=== PATIENT | male | born 1955 | race Caucasian/White ===

== ENCOUNTER → 2020-08-19 17:56 | Outpatient (CLI) | payer MEDICARE, SELFPAY ==
[2020-08-19 18:53] LABS: T4 (Thyroxine) 11.1 ug/dl (5.53-11.0)
[2020-08-19 19:06] LABS: Thyroid Stimulating Hormone 1.27 uIU/mL (0.465-4.68)
== END ==
PROVIDERS: Visit Provider Family Medicine
DX: E03.9 Hypothyroidism, unspecified (principal)
CPT/HCPCS: 84436; 84443

== ENCOUNTER → 2021-10-21 20:36 | Outpatient (CLI) | payer MEDICARE, SELFPAY ==
[2021-10-21 21:42] LABS: Thyroid Stimulating Hormone 1.45 uIU/mL (0.465-4.68)
== END ==
PROVIDERS: Visit Provider Family Medicine
DX: E03.9 Hypothyroidism, unspecified (principal)
CPT/HCPCS: 84443

== ENCOUNTER → 2022-04-02 11:55 | Outpatient (CLI) | payer MEDICARE, SELFPAY ==
[2022-04-02 17:58] LABS: Basophils # 0.3 K/mm3 (0-0.2); Basophils % 1.2 % (0.1-2.0); Eosinophils % 0.1 % (0.1-12.0); Hematocrit 40.6 % (42.0-52.0); Hemoglobin 12.5 g/dL (14.1-18.0); Lymphocytes # 23.9 K/mm3 (0.7-4.5); Lymphocytes % 93.7 % (10-50); Mean Corpuscular HGB Conc 30.9 g/dL (31.8-35.4); Mean Corpuscular Volume 119.8 fl (80-94); Mean Platelet Volume 9.8 fl (7.4-10.4); Monocytes # 0.1 K/mm3 (0.1-1.0); Monocytes % 0.2 % (1.7-9.3); Neutrophils # 1.3 K/mm3 (1.8-7.8); Neutrophils % 4.9 % (37.0-80.0); Platelet Count 207 K/mm3 (142-424); Red Blood Count 3.39 M/mm3 (4.60-6.20); Red Cell Distribution Width 15.5 % (11.5-17.5); White Blood Count 25.5 K/mm3 (4.8-10.8)
[2022-04-02 17:59] LABS: MANUAL DIFFERENTIAL MANUAL DIFFERENTIAL (MANUAL DIFF)
[2022-04-02 18:10] LABS: Chloride 108 mmol/L (98-107); Potassium 4.3 mmoL/L (3.5-5.1); Sodium 139 mmol/L (136-145)
[2022-04-02 18:13] LABS: Alanine Aminotransferase 26 U/L (12-78); Albumin Level 4.2 g/dl (3.5-5.0); Albumin/Globulin Ratio 2.1 (1.1-1.8); Alkaline Phosphatase 48 U/L (38-126); Anion Gap 10.3 mEq/L (5-15); Aspartate Amino Transferase 39 U/L (17-59); Bilirubin,Total 1.6 mg/dl (0.2-1.3); Blood Urea Nitrogen 15 mg/dl (9-20); Calcium 9.2 mg/dl (8.4-10.2); Carbon Dioxide 25 mmol/L (22.0-30.0); Estimated Glomerular Filt Rate 61 ml/min (>60); GFR (African American) 74 ML/MIN (>60); Glucose 97 mg/dl (74-100); Total Protein,Serum 6.2 g/dl (6.3-8.2)
[2022-04-02 18:29] LABS: Free T4 (Free Thyroxine) 1.23 ng/dl (0.78-2.19)
[2022-04-02 18:43] LABS: Thyroid Stimulating Hormone 1.47 uIU/mL (0.465-4.68)
[2022-04-02 19:18] LABS: Hypochromasia 2+; Lymphocytes % 95 % (10-50); Macrocytosis 2+; Neutrophils % 5 % (42-76); Platelet Estimate Normal; Total Cells Counted 100
[2022-04-02 21:24] LABS: Prostate Specific Ag Screen 0.2 ng/ml (0.0-4.0)
== END ==
PROVIDERS: PCP Family Medicine; Visit Provider Family Medicine
DX: E03.9 Hypothyroidism, unspecified (principal); K21.9 Gastro-esophageal reflux disease without esophagitis; Z12.5 Encounter for screening for malignant neoplasm of prostate
CPT/HCPCS: 80053; 84439; 84443; 85007; 85025; G0103

== ENCOUNTER 2022-05-06 08:29 | Day surgery (SDC) | payer MEDICARE, SELFPAY ==
[2022-05-06] VITALS (7 sets, daily range): BP systolic 77–119; BP diastolic 51–75; PULSE 43–53; RESP 16–18; TEMP 36.3–36.6; O2SAT 91–100; BMI 27.9
--- NOTE | 2022-05-06 09:51 | P.PN_ITS ---
[facility] Anesthesia Checklist - Structural Data Admitted From: Home Planned Operative Procedure/s: colonoscopy Consent for Planned Operative Procedure(s) Verified: Yes - Airway Assessment C-Spine Mobility Assessed: Yes TMJ Mobility Assessed: Yes Dentition: Good Dentition - Neurological Assessment Level of Consciousness: Awake, Alert, Appropriate - Anesthesia Plan Anesthesia Risk discussed: Yes Anesthesia Plan: Verified ASA Class: II Anesthesia Type: MAC [facility] History I have reviewed the patient's past medical history: Yes Medical History: Reports:: Anxiety, Asthma, Cancer, Depression, Gastroesophageal Reflux Disease(GERD), Hyperlipidemia, Hypertension, Kidney Stones, Renal Insufficiency Denies:: Diabetes Mellitus Type 1, Diabetes Mellitus Type 2, Internal Pace maker, MRSA, Seizures *Have you ever received a pneumonia vaccine?: Yes *Have you received a flu vaccine this season?: Yes Other Medical History: Reports: Arthritis, Cataracts, Chemotherapy, Glaucoma, Hypothyroidism, Liver Disease, Radiation Therapy, Thyroid Disease Anesthesia experience/problems:: none Laterality Cases: Bilateral: Tonsillectomy Other Surgeries: No: Pacemaker Amputation: No Fractures: Yes (Jaw, ribs) - *Social History Last grade of school completed: Advanced degree Smoking Status: Never smoker Alcohol Intake: current Alcohol Intake Frequency:: 0-2 drinks per day Substance Use Type: denies use *Occupational Status:: unemployed Housing: house Household Members: significant other *Travel in the last 8 weeks: None - Psychiatric History Pschychiatric History:: Reports:: Anxiety, Depression Family Hx:: Cancer, Heart Attack, Hypertension
--- NOTE | 2022-05-06 09:59 | HMH.SCOPE ---
- Procedure: Date: 05/06/22 Patient Date of :: 1955 Procedure Performed:: Colonoscopy Indications:: Screening colonoscopy Performing Provider:: Surjit Bryant MD Referring Provider:: Martin Leal MD Sedation:: See RN records Procedure:: After placing the patient in the left lateral decubitus position, the colonoscopy was gently inserted into the rectum and under direct visualization advanced to the cecum which was identified by transillumination in the right lower quadrant, identification of the ileocecal valve, appendiceal orifice, and cecal strap. Color, texture, mucosa, and anatomy of the colon were carefully examined with the scope. Findings:: Anal canal: normal Rectum: Internal hemorrhoids Sigmoid colon: normal without polyps or inflammatory changes Descending colon: normal without polyps or inflammatory changes Splenic flexure: normal Transverse colon: Fair preparation Hepatic flexure: Fair preparation Ascending colon: Fair preparation Cecum: normal Terminal ileum: not visualized Recommendations:: Repeat colonoscopy in 5 years Complications:: None Estimated blood obtained (mL): 0
== END 2022-05-06 10:50 | disposition home or self-care (01) ==
LOC: OUTP 08:31
PROVIDERS: PCP Family Medicine; Visit Provider Internal Medicine
PROC: 0DJD8ZZ Inspection of Lower Intestinal Tract, Via Natural or Artificial Opening Endoscopic (ICD-10-PCS; CPT 45378; principal; 2022-05-06 09:30)
DX: Z12.11 Encounter for screening for malignant neoplasm of colon (principal)
CPT/HCPCS: G0121

== ENCOUNTER → 2023-08-19 23:28 | Outpatient (CLI) | payer MEDICARE, SELFPAY ==
[2023-08-19 21:52] LABS: Alanine Aminotransferase 18 U/L (12-78); Albumin Level 4.1 g/dl (3.5-5.0); Albumin/Globulin Ratio 1.7 (1.1-1.8); Alkaline Phosphatase 49 U/L (38-126); Anion Gap 11.9 mEq/L (5-15); Aspartate Amino Transferase 32 U/L (17-59); Bilirubin,Total 1.8 mg/dl (0.2-1.3); Blood Urea Nitrogen 16 mg/dl (9-20); Calcium 9.5 mg/dl (8.4-10.2); Carbon Dioxide 29 mmol/L (22.0-30.0); Chloride 103 mmol/L (98-107); Chol/HDL Ratio 3.6 (1-3.5); Cholesterol 126 mg/dl (140-200); Estimated Glomerular Filt Rate 55 ml/min (>60); GFR (African American) 67 ML/MIN (>60); Globulin 2.4 g/dL (1.3-3.2); Glucose 82 mg/dl (74-100); HDL Cholesterol 35 mg/dl (40-60); Potassium 3.9 mmoL/L (3.5-5.1); Sodium 140 mmol/L (136-145); Total Protein,Serum 6.5 g/dl (6.3-8.2); Triglycerides 119 mg/dl (30-150); VLDL Cholesterol 24 mg/dL (0-40)
[2023-08-19 22:05] LABS: Direct LDL Cholesterol 72.24 mg/dL (100-129)
[2023-08-19 22:23] LABS: Thyroid Stimulating Hormone 1.72 uIU/mL (0.465-4.68)
== END ==
PROVIDERS: PCP Family Medicine; Visit Provider Family Medicine
DX: F32.9 Major depressive disorder, single episode, unspecified (principal); C91.10 Chronic lymphocytic leukemia of B-cell type not having achieved remission; E03.9 Hypothyroidism, unspecified
CPT/HCPCS: 80053; 80061; 84443

== ENCOUNTER 2023-10-20 18:09 | Outpatient (CLI) | payer MEDICARE, SELFPAY ==
[2023-10-20 20:55] LABS: Prostate Specific Ag Screen 0.2 ng/ml (0.0-4.0)
== END 2023-10-20 23:59 ==
LOC: LAB.DROPOF 18:09
PROVIDERS: PCP Family Medicine; Visit Provider Family Medicine
DX: Z12.5 Encounter for screening for malignant neoplasm of prostate (principal)
CPT/HCPCS: G0103

== ENCOUNTER → 2023-11-24 10:41 | Outpatient (POV) | payer MEDICARE, SELFPAY ==
[2023-11-24 10:50] VITALS: BP 123/80; PULSE 86; RESP 18; O2SAT 98; BMI 24.7
--- NOTE | 2023-11-24 12:14 | EXP.PAIN.OV ---
HPI Data of Consult Patient: new to practice Consult date: 11/24/23 Requesting Physician: Avani Torres APRN Primary Care Provider: Martin Leal MD Consult Narrative Reason for consult: Chronic back pain, neck pain, mid back pain, low back pain History of present illness: Mr. Emanuel is a 68 year old male who presents today as a new patient. He is a referral from Dr. Leal's office. Today he rates his pain a 7 out of 10. Patient states he has chronic pain from his neck down related to overall arthritis, degenerative disc disease, scoliosis, history of cervical fusion and leukemia. Patient states he is still in active treatment and has regular appointments for this. He states he is currently in a clinical trial that is working well. Patient does state that due to all of this he has chronic pain that does affect his ability perform activities of daily living such as cooking and cleaning or even simple ambulation. He does describe his pain as a aching with occasional sharp shooting pains depending on his positioning. He states that frequently prolonged sitting standing or walking aggravate his symptoms. Patient states he has very little quality of life has tried and failed conservative therapy such as oral medications, heat and ice, topicals and physical therapy multiple sessions with minimal relief. Patient has had the previous cervical surgery and states that he did see a neurosurgeon back at [facility] that did discuss possible lumbar fusions however at that time he did not want to proceed forward with that option. Patient states he is scheduled to see a new neurosurgeon at [facility] coming up within the next week or so. Patient has tried multiple injections with minimal relief and always seemed very temporary. Patient has had 2 different stimulators that were noneffective overall and had them removed. Patient denies any recent spine imaging however states he has frequent CT imaging on a regular basis to monitor his leukemia. Patient is interested. Help we may be able to provide. He is prescribed alprazolam 1 mg twice a day from his primary care provider. His Eric has been reviewed and is appropriate. CC: Avani Torres APRN [facility] Disclaimer: The information contained in this section may have been updated after the patient was seen, as this information can be updated by other users. Medical History (Updated 11/24/23 @ 12:19 by Avani Torres APRN) Anxiety Chronic lymphocytic leukemia Depression GERD (gastroesophageal reflux disease) Hypothyroidism Vitamin D deficiency Social History (Updated 11/24/23 @ 11:06 by Becky rFost RN) Smoking Status: Never smoker alcohol intake: current substance use type: denies use current occupational status: unemployed Travel in the last 8 weeks: None household members: significant other housing: house Review of Systems Review of Systems Review of systems:: pertinent systems reviewed and negative unless documented below Review of systems (narrative): Review of Systems: General: No recent weight changes, no fever, no sleep disturbances Respiratory: No cough, no shortness of air, no recurring pulmonary infections Cardiovascular/peripheral vascular: No chest pain, no palpitations, no edema, no shortness of breath Gastrointestinal: No new onset incontinence, normal bowel movements reported Genitourinary: No new onset incontinence Musculoskeletal: Neck pain, back pain, low back pain Psychiatric: [Normal mood/affect] Neurological: [Denies weakness in extremities], [denies balance issues] Meds Home Medications and Allergies Home Medications Medication Instructions Recorded Confirmed Type cholecalciferol (vitamin D3) 50 50 mcg PO DAILY Supplement 05/02/20 11/24/23 History mcg (2,000 unit) capsule immune glob,gamm(IgG) 10 %-pro-IgA 400 mg/kg IV Q4W cancer 05/02/20 11/24/23 History 0 to 50 mcg/mL intravenous solution (Privigen) loperamide 2 mg tablet 2 mg PO Q6H PRN Diarrhea 05/02/20 11/24/23 History (Anti-Diarrheal (loperamide)) multivitamin 1 tab PO DAILY Supplement 05/02/20 11/24/23 History fluticasone propionate 50 1 spray intranasal BID Allergy 05/06/22 11/24/23 History mcg/actuation nasal symptoms spray,suspension albuterol sulfate 90 mcg/actuation 2 puff inhalation QID PRN 10/29/22 11/24/23 Rx aerosol inhaler shortness of breath or wheezing #8.5 grams brinzolamide 1 %-brimonidine 0.2 % 1 drp Eye-Left DIRECTED EYE 06/28/23 11/24/23 History eye drops,suspension (Simbrinza) timolol maleate 0.5 % eye drops 1 drp Eye-Left DIRECTED EYE 06/28/23 11/24/23 History trospium 20 mg tablet 20 mg PO DIRECTED BLADDER 06/28/23 11/24/23 History mirabegron 50 mg tablet,extended See Rx Instructions .Route 07/12/23 11/24/23 Rx release 24 hr (Myrbetriq) .COMPLEX #90 tabs montelukast 10 mg tablet See Rx Instructions .Route 07/12/23 11/24/23 Rx .COMPLEX #90 tabs omeprazole 40 mg capsule,delayed See Rx Instructions .Route 07/12/23 11/24/23 Rx release .COMPLEX #90 caps alprazolam 1 mg tablet (Xanax) 1 mg PO BID PRN anxiety #60 tabs 08/19/23 11/24/23 Rx acyclovir 800 mg tablet See Rx Instructions .Route 08/20/23 11/24/23 Rx .COMPLEX #180 tabs bupropion HCl 150 mg 24 hr tablet, See Rx Instructions .Route 09/06/23 11/24/23 Rx extended release .COMPLEX #90 tabs bupropion HCl 300 mg 24 hr tablet, See Rx Instructions .Route 09/06/23 11/24/23 Rx extended release .COMPLEX #90 tabs levothyroxine 88 mcg tablet See Rx Instructions .Route 09/06/23 11/24/23 Rx .COMPLEX #90 tabs tamsulosin 0.4 mg capsule See Rx Instructions .Route 09/06/23 11/24/23 Rx .COMPLEX #90 caps aripiprazole 5 mg tablet See Rx Instructions .Route 09/17/23 11/24/23 Rx .COMPLEX #90 tabs allopurinol 300 mg tablet See Rx Instructions .Route 09/22/23 11/24/23 Rx .COMPLEX #90 tabs simvastatin 40 mg tablet See Rx Instructions .Route 09/22/23 11/24/23 Rx .COMPLEX #90 tabs New Prescriptions to Start Prescriptions: Allergies Allergy/AdvReac Type Severity Reaction Status Date / Time Iodinated Contrast Media Allergy Severe Anaphylaxis Verified 10/20/23 10:45 tramadol [From Ultram] Allergy Severe Palpitation Verified 10/20/23 10:45 s levofloxacin [From Levaquin] AdvReac Severe Hypotension Verified 10/20/23 10:45 phenelzine [From Nardil] AdvReac Severe Confusion Verified 10/20/23 10:45 Opioids - Morphine Analogues AdvReac Rash Verified 10/20/23 10:45 Objective Vital signs: Pulse Resp BP Pulse Ox O2 Del Method 86 18 123/80 98 Room Air 11/24/23 10:50 11/24/23 10:50 11/24/23 10:50 11/24/23 10:50 11/24/23 10:50 Narrative: Physical Exam: General: Alert and oriented x3, no acute distress, pleasant and cooperative Lungs: Respirations even and unlabored, symmetrical chest expansion Eyes: PERRL Musculoskeletal: Flexion and extension of cervical, lumbar [spine] somewhat guarded secondary to pain, [antalgic gait noted] Neurological: Speech clear, no gross sensory deficit Assessment and Plan *Assessment and plan (1) Chronic back pain: Status: Acute Qualifiers: Back pain location: low back pain Back pain laterality: midline Sciatica presence: with sciatica Sciatica laterality: sciatica laterality unspecified Qualified Code(s): M54.40 - Lumbago with sciatica, unspecified side Category: Medical Code(s): M54.9 - Dorsalgia, unspecified; G89.29 - Other chronic pain (2) CLL (chronic lymphocytic leukemia): Status: Acute Category: Medical Code(s): C91.10 - Chronic lymphocytic leukemia of B-cell type not having achieved remission (3) Chronic pain syndrome: Status: Acute Category: Medical Code(s): G89.4 - Chronic pain syndrome (4) Status post cervical spinal fusion: Status: Acute Category: Surgical Code(s): Z98.1 - Arthrodesis status (5) Neck pain: Status: Acute Category: Medical Code(s): M54.2 - Cervicalgia (6) Mid back pain: Status: Acute Category: Medical Code(s): M54.9 - Dorsalgia, unspecified Plan Patient is experiencing significant pain throughout his spine with limited range of motion of his cervical and lumbar spine during today's exam. I have discussed with the patient that he may benefit from a intrathecal pain pump trial. Risk and benefits were discussed with the patient and he would like to proceed forward with this plan of care. Educational handouts were given to the patient at today's visit. I have also discussed with the patient that in future if he does have an appropriate psychological evaluation that we will also have to discuss with his leukemia providers his plan of care to confirm that the intrathecal pain pump trial will not interfere with his current therapy. I will order the patient a psychological evaluation and if he is deemed an appropriate candidate we will proceed forward with the intrathecal pain pump trial at a later date. Patient will return to clinic in 1 month for reevaluation of symptoms and plan of care. Patient has been instructed to contact the clinic with any concerns before the next appointment. Dr. Field has reviewed this note and agrees with this plan of care. This note was dictated using voice recognition software and make contain errors or omissions.
== END ==
LOC: SC.PAIN 10:42
PROVIDERS: PCP Family Medicine; Visit Provider Nurse Practitioner Family
DX: M54.40 Lumbago with sciatica, unspecified side (principal); C91.10 Chronic lymphocytic leukemia of B-cell type not having achieved remission; G89.4 Chronic pain syndrome; Z98.1 Arthrodesis status; M54.2 Cervicalgia; M54.6 Pain in thoracic spine
CPT/HCPCS: 99202; G0463

== ENCOUNTER 2024-01-12 11:27 | Outpatient (POV) | payer MEDICARE, MEDICAID, SELFPAY ==
[2024-01-12 11:54] VITALS: BP 119/76; PULSE 67; RESP 18; O2SAT 97; BMI 23.7
--- NOTE | 2024-01-12 12:05 | A.OFFVIS_ITS ---
[facility] Pain Management SOAP Note Subjective:: Patient is a pleasant 68-year-old male who presents today for psychological evaluation follow-up. Today he rates his pain a 5 out of 10. Patient denies any new trauma or injury. He does state from our last visit he has had updated imaging at the [facility] and states that they did tell him he was not a surgical candidate. Patient states she continues to have chronic pain throughout his neck down his low back. He states this is a aching, throbbing sensation with occasional sharp shooting pains. He does state that the pain interferes with his ability to perform activities of daily living such as cooking and cleaning. At our last visit he was given information regarding the intrathecal pain pump and he states that he would like to proceed forward with this option. Patient does have questions whether or not if the device can be put in his abdomen if he does have a significant relief. He states that his partner does have the pump in his back and it is more bothersome. Patient is currently managed with alprazolam from an outside provider. His Eric has been reviewed and is appropriate. Review of Systems: General: No recent weight changes, no fever, no sleep disturbances Respiratory: No cough, no shortness of air, no recurring pulmonary infections Cardiovascular/peripheral vascular: No chest pain, no palpitations, no edema, no shortness of breath Gastrointestinal: No new onset incontinence, normal bowel movements reported Genitourinary: No new onset incontinence Musculoskeletal: Chronic back pain Psychiatric: [Normal mood/affect] Neurological: [Denies weakness in extremities], [denies balance issues] Objective:: Physical Exam: General: Alert and oriented x3, no acute distress, pleasant and cooperative Lungs: Respirations even and unlabored, symmetrical chest expansion Eyes: PERRL Musculoskeletal: Flexion and extension of lumbar [spine] somewhat guarded secondary to pain, [antalgic gait noted] Neurological: Speech clear, no gross sensory deficit [facility] 12/06/2023 MRI lumbar spine with and without contrast Findings: There is no abnormal enhancement at the vertebral bodies. There is abnormal enhancement between the spinous processes of L3 and L4 as well as L4 and L5 indicating Baastrup's disease. Cord signal is unremarkable. Cauda equina is unremarkable. L1-2: Disc desiccation with minimal disc bulge noncompressive L2-L3: 3 mm retrolisthesis with mild disc bulge. Facet hypertrophy noted. No neural encroachment L3-4: 2 mm retrolisthesis of L3 on L4 with facet hypertrophy and minimal disc bulge. Bilateral foraminal narrowing. Lateral recesses and central canal are patent. L4-L5: Robust facet hypertrophy. No significant disc bulge. Borderline foraminal narrowing. Lateral recesses and central canal are patent L5-S1: Robust facet hypertrophy. 2 mm grade 1 degenerative spondylolisthesis. Bilateral foraminal crowding. Lateral recesses and central canal patent 12/06/2023 MRI thoracic spine with and without contrast Findings: There is scoliosis of the spine as previously noted. There is irregularity of the right fifth rib best seen on axial images. Probably an exostosis or old hypertrophic fracture. Appearance was abnormal and stable in the 2014 study without significant interval abnormality. Cord signal shows normal signal. No significant central canal compression. There is multilevel foraminal encroachment on the left in the mid thoracic spine related to dextroscoliosis. There are additional right-sided foraminal encroachment's in the upper thoracic spine related to compensatory levoscoliosis. No paraspinal mass. Postcontrast images show no unexpected enhancing lesion Assessment:: Degenerative disc disease of cervical and lumbar spine with prior history of cervical fusion, scoliosis, leukemia Plan:: Patient continues to experience significant pain throughout his neck down to his low back. Patient had limited range of motion of his lumbar spine during today's visit. Patient did have a psychological evaluation and was deemed an appropriate candidate for the intrathecal pain pump trial. Risk and benefits of this procedure were explained to the patient and he still would like to proceed forward with this plan of care. Patient has tried and failed conservative therapies such as oral medications, heat and ice, topicals, prior spinal cord stimulator implants, history of cervical surgery, injection therapy and physical therapy. Patient will be scheduled for a intrathecal pain pump trial we will contact the patient once we have insurance approval for specific time and date. Patient is not on any blood thinners. Patient does have leukemia and we will reach out to his current provider to confirm that there are no contraindications. Patient has been instructed to contact the clinic with any concerns before the next appointment. Dr. Field has reviewed this note and agrees with this plan of care. This note was dictated using voice recognition software and make contain errors or omissions. [facility] Disclaimer: The information contained in this section may have been updated after the patient was seen, as this information can be updated by other users. Medical History Chronic lymphocytic leukemia GERD (gastroesophageal reflux disease) Hypothyroidism Vitamin D deficiency Depression Anxiety Social History Smoking Status: Never smoker alcohol intake: current substance use type: denies use current occupational status: unemployed Travel in the last 8 weeks: None household members: significant other housing: house
== END 2024-01-12 23:59 ==
LOC: SC.PAIN 11:28
PROVIDERS: PCP Family Medicine; Visit Provider Nurse Practitioner Family
DX: M50.30 Other cervical disc degeneration, unspecified cervical region (principal); M51.36 Other intervertebral disc degeneration, lumbar region; M43.22 Fusion of spine, cervical region; M41.9 Scoliosis, unspecified; C95.90 Leukemia, unspecified not having achieved remission
CPT/HCPCS: 99212; G0463

== ENCOUNTER 2025-05-17 10:00 | Outpatient (CLI) | payer MEDICARE, SELFPAY ==
[2025-05-17 14:52] LABS: Hematocrit 39.4 % (42.0-52.0); Hemoglobin 13.6 g/dL (14.1-18.0); Immature Granulocytes % 0.2 %; Mean Corpuscular HGB Conc 34.5 g/dL (31.8-35.4); Mean Corpuscular Hemoglobin 34.0 pg (27.0-31.2); Mean Corpuscular Volume 98.5 fl (80-94); Nucleated Red Blood Cells % 0 %; Platelet Count 157 K/mm3 (142-424); Red Blood Count 4.00 M/mm3 (4.60-6.20); Red Cell Distribution Width-SD 47.4 fL; White Blood Count 4.0 K/mm3 (4.8-10.8)
[2025-05-17 15:24] LABS: Alanine Aminotransferase 21 U/L (12-78); Albumin Level 4.1 g/dl (3.5-5.0); Albumin/Globulin Ratio 2.0 (1.1-1.8); Alkaline Phosphatase 67 U/L (38-126); Anion Gap 10.5 mEq/L (5-15); Aspartate Amino Transferase 32 U/L (17-59); Bilirubin,Total 1.9 mg/dl (0.2-1.3); Blood Urea Nitrogen 15 mg/dl (9-20); Calcium 9.7 mg/dl (8.4-10.2); Carbon Dioxide 28 mmol/L (22.0-30.0); Chloride 105 mmol/L (98-107); Cholesterol 138 mg/dl (140-200); Creatinine,Serum 1.10 mg/dl (0.66-1.25); Estimated Glomerular Filt Rate 67 ml/min (>60); GFR (African American) 81 ML/MIN (>60); Globulin 2.1 g/dL (1.3-3.2); Glucose 97 mg/dl (74-100); HDL Cholesterol 35 mg/dl (40-60); Potassium 4.5 mmoL/L (3.5-5.1); Sodium 139 mmol/L (136-145); Total Protein,Serum 6.2 g/dl (6.3-8.2); Triglycerides 114 mg/dl (30-150)
--- OUTSIDE RECORDS SUMMARY | 2025-05-18 10:18 | XMS_ITS | Clinical Summary ---
Author Organization Healthcare Address [address] [place] [address] Care Team Providers Care Underwriting Consultant Name Role Phone Martin Leal MD Primary Care Provider [phone] Allergies Active Allergy Reactions Criticality Noted Date Comments Diatrizoate Anaphylaxis High 04/08/2015 Iodides Anaphylaxis High 11/04/2010 Contrast dye. Had respiratory arrest. Contrast dye. Had respiratory arrest. Morphine Itching Medium 11/04/2010 Bladder retention Bladder retention Tramadol Palpitations Medium 06/10/2012 Developed irregular heartbeat Medications lansoprazole (Prevacid) [address] capsule Take 15 mg by mouth 1 (one) time each day. Active latanoprost (Xalatan) 0.005 % ophthalmic solution Administer 1 drop into affected eye(s). 1 Active travoprost (Travatan Z) 0.004 % solution ophthalmic solution INSTILL 1 DROP Bedtime into OS 0 Active timolol (Timoptic) 0.5 % ophthalmic solution 1 Active sodium chloride (Carmela 128) 2 % ophthalmic solution Administer 1 drop into affected eye(s). Active simvastatin (Zocor) 40 MG tablet Take 40 mg by mouth 1 (one) time each day. 0 Active prednisoLONE acetate (Pred-Forte) 1 % ophthalmic suspension Administer 1 drop into affected eye(s) every 4 (four) hours. Active omeprazole (PriLOSEC) [address] capsule Take 40 mg by mouth 1 (one) time each day. 0 Active Multiple Vitamin (multivitamin) capsule Take 1 capsule by mouth 1 (one) time each day. Active montelukast (Singulair) 10 MG tablet Take 10 mg by mouth. 0 Active Myrbetriq 50 MG tablet 1 Active levothyroxine (Synthroid, Levoxyl) 88 MCG tablet Take 88 mcg by mouth 1 (one) time each day. 0 Active immune globulin,gamma, IGG, (Gamastan S/D) injection 0 Active fluticasone-lester meterol (Advair Diskus) 100-50 MCG/DOSE diskus inhaler Inhale 1 puff. Activ e fluticasone (Flonase) 50 MCG/ACT nasal spray 0 Active difluprednate (Durezol) 0.05 % ophthalmic solution Instill 1 gtts q1h into OS. 0 Active cholecalciferol (Vitamin D-3) 25 MCG (1000 UT) tablet Take 2,000 Units by mouth 1 (one) time each day. Active buPROPion XL (Wellbutrin XL) 150 MG 24 hr tablet Takes 300 mg in AM and 150 mg in PM 0 Active Simbrinza 1-0.2 % suspension 1 Active ARIPiprazole (Abilify) 5 MG tablet 1 Active ALPRAZolam (Xanax) 0.5 MG tablet 1 Active allopurinol (Zyloprim) 300 MG tablet 1 Active albuterol (5 MG/ML) 0.5% nebulizer solution Inhale 2.5 mg. Activ e acyclovir (Zovirax) 400 MG tablet Take 400 mg by mouth twice a day. Active RES - LOXO-305 100 MG tablet Take 100 mg by mouth 1 (one) time each day. 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 Family History Medical History Relation Name Comments Cataracts Father Conversions - Other Father Macular degeneration, wet Prostate cancer Father Cardiac disorder Mother Cataracts Mother Relation Name Status Comments Father Mother Social History Tobacco Use Types Packs/Day Years Used Date Smoking Tobacco: Never Smokeless Tobacco: Never Alcohol Use Standard Drinks/Week Comments Yes 0 (1 standard drink = 0.6 oz pure alcohol) Alcoholic Drinks/day: Social alcohol use Sex and Gender Information Value Date Recorded Sex Assigned at Not on file Legal Sex Male 6:34 PM EDT Gender Identity Not on file Sexual Orientation Not on file Plan of Treatment Health Maintenance Due Date Last Done Comments [facility]-Depression Screening 1955 [facility]-Hepatitis C Screening 1955 [facility]-Medicare Annual Wellness (AWV) 1955 [facility]-/Child/Adol SDOH Screenings 1955 [facility]- SDOH Screenings 1975 [facility]-Adult SDOH Screenings 1975 [facility]-DTaP,Tdap,and Td Vaccines (1 - Tdap) 1976 CT Colonography 2002 Colonoscopy 2002 FIT-DNA 2002 FIT 2002 FOBT 2002 Sigmoidoscopy 2002 [facility]-Colorectal Cancer Screening 2002 [facility]-Zoster Vaccines (1 of 2) 2007 [facility]-Pneumococcal Vaccine: 50+ Years (3 of 3 - PCV20 or PCV21) 05/29/2021 05/29/2016, 08/13/2014 [id number] Vaccine (9 - Moderna risk 2023- season) 2024 06/21/2024, 03/03/2024, 07/21/2023, Additional history exists [facility]-Influenza Vaccine (#1) 06/11/202507/21, 07/11/2022, 08/30/2017, Additional history exists [facility]-RSV Vaccine: 60+ Years or Completed 07/21/2023 HPV Vaccines Aged Out No longer eligi ble based on patient's age to complete this topic [facility]-HIB Vaccines Aged Out No longer e ligible based on patient's age to complete this topic [facility]-Hepatitis A Vaccines Aged Out No longer eligible based on patient's age to complete this topic [facility]-IPV Vaccines Aged Out No longer e ligible based on patient's age to complete this topic [facility]-Rotavirus Vaccines Aged Out No lo nger eligible based on patient's age to complete this topic Insurance [employer] MEDICARE [place]ICA[place] Care Teams Underwriting Consultant Relationship Specialty Start Date End Date Martin Leal MD PCP - General 02/21/21
--- OUTSIDE RECORDS SUMMARY | 2025-05-18 10:18 | XMS_ITS | Clinical Summary ---
Author Organization [facility] Address [address] [place] [address] Care Team Providers Care Operations Program Manager Name Role Phone Unavailable Primary Care Provider Unavailabl e Source Comments [facility] is fully rolled out with thefollowing exceptions:General Clinical Research [facility] Social History Tobacco Use Types Packs/Day Years Used Date Smoking Tobacco: Never Assessed Sex and Gender Information Value Date Recorded Sex Assigned at Not on file Legal Sex Male 5:37 AM EST Gender Identity Not on file Sexual Orientation Not on file Plan of Treatment Health Maintenance Due Date Last Done Comments MMR IMMUNIZATION (1 of 1 - S tandard series) 1958 DTAP/Tdap/Td IMMUNIZATION (1 - Tdap) 1964 VARICELLA IMMUNIZATION (1 of 2 - 13+ 2-dose series) 1970 COVID-19 Vaccine ( - 2023-2 5 season) 2024 AMB SEASONAL FLU VACCINE (#1) 06/11/2025 Respiratory Syncytial Virus (RSV) >60yo or (1 - 1-dose 75+ series) 2032 HEPATITIS B IMMUNIZATION Aged Out No longer eligible based on patient's age to complete this topic HIB IMMUNIZATION Aged Out No longer e ligible based on patient's age to complete this topic HPV IMMUNIZATION Aged Out No longer e ligible based on patient's age to complete this topic IPV IMMUNIZATION Aged Out No longer e ligible based on patient's age to complete this topic MCV4 IMMUNIZATION Aged Out No longer eligible based on patient's age to complete this topic MENINGOCOCCAL B VACCINE Aged Out No l onger eligible based on patient's age to complete this topic Respiratory Syncytial Virus (RSV) <20mo Aged Out No longer eligible b ased on patient's age to complete this topic Insurance * Guarantor: Rony Emanuel Account Type Relation to Patient Date of Phone Billing Address [facility] Reference Lab Self 1955 [address] [place] [address] MEDICARE [place] [facility] NON-TRADITIONAL
--- OUTSIDE RECORDS SUMMARY | 2025-05-18 10:18 | XMS_ITS | Clinical Summary ---
Author Organization [facility] Address [address] [place] [id number] Phone Care Team Providers Care Card Placer Name Role Phone Mechelle Parra [phone] Conditions or Problems Problem Name Problem Code Onset Date Status Entry Date Provider Comment Standard Description Annotate SPONDYLOSIS, LUMBAR 603874202 (SNOMED CT) Active Mechelle MAHONEY Lumbosacral spondylosis FOLLOW-UP EXAMINATION FOLLOWING OTHER SURGERY Z09 (ICD-10-CM) Active Mary Ellen Soto MD Encounter for follow-up examination after completed treatment for conditions other than malignant neoplasm PREOPERATIVE EXAMINATION 102018755 (SNOMED CT) Active Mary Ellen Soto MD Preoperative procedures SCOLIOSIS [id number] (SNOMED CT) Active Mary Ellen Soto MD Scoliosis deformity of spine BACK PAIN, THORACIC REGION 079820253 (SNOMED CT) Active Alea Hanks MA Thoracic back pain NECK PAIN 01046539 (SNOMED CT) Active Alea Hanks MA Neck pain Medications Medication Instructions Start Date Stop Date Generic Name NDC Provider VALIUM 5 MG TABS Take 1 tablet by mouth as directed Take one tablet 1 hour before procedure, one tablet 30 minutes prior. May take #3 at facility if needed. diazepam [id number] Ravi Pineda NP HIBICLENS 4 % EXTERNAL LIQUID Wash the entire back the night prior to the surgery CHLORHEXIDINE GLUCONATE [id number] Mary Ellen Soto MD HIBREMY 4 % EXTERNAL LIQUID Wash the entire back the night prior to the surgery CHLORHEXIDINE GLUCONATE [id number] Mary Ellen Soto MD LEVOTHYROXINE SODIUM TABS 1 daily Non-King LEVOTHYROXINE SODIUM TABS 06268591093 Mary Ellen Soto MD LANSOPRAZOLE 15 MG CPDR 1 daily Non-King LANSOPRAZOLE 48002767563 Mary Ellen Soto MD SINGULAIR 10 MG TABS 1 daily Non-King MONTELUKAST SODIUM 14343643449 Mary Ellen Soto MD SIMVASTATIN 40 MG TABS 1 daily Non- SIMVASTATIN [id number] Mary Ellen Soto MD ACYCLOVIR 400 MG TABS 1 bid Non-King ACYCLOVIR 15726792935 Mary Ellen Soto MD CIPRO 500 MG TABS 1 bid Non- CIPROFLOXACIN HCL 76925211025 Mary Ellen Soto MD CYMBALTA 60 MG CPEP 1 daily Non-King DULOXETINE HCL 09133054168 Mary Ellen Soto MD CYMBALTA 30 MG CPEP 1 daily Non- DULOXETINE HCL 05038804866 Mary Ellen Soto MD WELLBUTRIN XL 150 MG CR10P-OAT 1 tid Non-King BUPROPION HCL 87413644775 Mary Ellen Soto MD ADDERALL 30 MG TABS 1 bid Non- AMPHETAMINE-DEXT ROAMPHETAMINE 24846108914 Mary Ellen Soto MD ABILIFY 5 MG TABS 1 daily Non-King ARIPIPRAZOLE 70147780264 Mary Ellen Soto MD Medications Administered No information available. Allergies, Adverse Reactions, Alerts Allergy Name Reaction Description Start Date Severity Statu s Provider CONTRAST DYE Resp. arrest Critical Pantera Soto MD IODINE Resp. arrest Critical Mary Ellen castellano MD NARDIL Confusion Critical Mary Ellen de la cruz MD ULTRAM Heart palpatation Critical Mis Soto MD Results No information available. Plan of Care Type Date Detail Pending order MRI Lumbar with and without Contrast Pending order MRI Thoracic wit h and without Contrast Pending order MRI Lumbar with and without Contrast Pending order X-Ray Scoliosis - Series Pending order X-Ray Lumbar Fle xion/Extension Pending order MRI Thoracic wit h and without Contrast Pending order Metabolic Panel, Basic Pending order CBC Diff Pending order EKG Pending order X-Ray Cervical A P & Lateral Pending order X-Ray Thoracic A P & Lateral Procedures No information available. Vital Signs Date Name Value Unit Description BMI (Body Mass Index) 31.66 kg/m2 Bod y Mass Index (Ratio) Height 73 [in_us] height E&M Weight Measured 240 [lb_av] weight E& M Weight Measured 240 [lb_av] weight E& M BP Diastolic 93 mm[Hg] blood pressu re, diastolic BP Systolic 150 mm[Hg] blood pressur e, systolic Heart Rate 83 /min pulse rate Immunizations No information available. Advance Directives No information available.
--- OUTSIDE RECORDS SUMMARY | 2025-05-18 10:18 | XMS_ITS ---
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 No medications schedul ed. No medications scheduled. Past Treatment and Therapy Plans No past plan information found.
--- OUTSIDE RECORDS SUMMARY | 2025-05-18 10:18 | XMS_ITS | Clinical Summary ---
Author Organization [facility] Address [address] [place] [address] Phone Care Team Providers Care Die Casting Machine Maintainer Name Role Phone Martin Leal MD Primary Care Provider Steven Lee MD, [facility] ble Allergies Active Allergy Reactions Criticality Noted Date Comments Meperidine 11/04/2010 Bladder retention Diatrizoate Meglumine Anaphylaxis High 04/08/2015 Iodine Anaphylaxis High 11/04/2010 Contrast dye. Had respiratory arrest. Methadone 11/04/2010 Bladder retention Morphine 11/04/2010 Bladder retention Oxycodone Itching 11/04/2010 Phenelzine Other (See Comments) Medium 06/10/2012 Tramadol Palpitations Medium 06/10/2012 Developed irregular heartbeat Developed irregular heartbeat Developed irregular heartbeat Medications ARIPiprazole (ABILIFY) 5 mg Oral Tablet Take by mouth daily. Active dextroamphetami ne-amphetamine (ADDERALL) 30 mg Oral Tablet Take 30 mg by mouth 2 times daily. Active FLUTICASONE/GEETHA METEROL (ADVAIR DISKUS INHL) Inhale into the lungs 2 times daily. Active ALBUTEROL INHL Inhale into the lungs 2 times daily. Active DULOXETINE HCL (CYMBALTA ORAL) Take 90 mg by mouth daily. Active MONTELUKAST SODIUM (SINGULAIR ORAL) Take 10 mg by mouth daily. Active BUPROPION HCL (WELLBUTRIN ORAL) Take 150 mg by mouth. Active simvastatin (ZOCOR) 40 mg Take 40 mg by mouth daily. Active Tapentadol (NUCYNTA) 100 mg Tab Take 1 Tab by mouth 4 times daily as needed. 60 Tab 0 4 Active Additional Information Patient not taking.Reason: Advised by Physician, Reported on 02/04/2022 diazepam (VALIUM) 5 mg tablet Take 5 mg by mouth every 8 hours. Active prednisoLONE acetate (PRED FORTE) 1 % ophthalmic suspension Place 1 Drop into both eyes every 4 hours. Active tamsulosin (FLOMAX) 0.4 mg capsule Take 0.4 mg by mouth daily. Active acyclovir (ZOVIRAX) 200 mg Oral Capsule Take 200 mg by mouth every 12 hours. Active LEVOthyroxine (SYNTHROID) 88 mcg Oral Tablet Take 88 mcg by mouth daily. Active mirabegron (MYRBETRIQ) 50 mg Oral Tablet Sustained Release 24 hr Take 50 mg by mouth daily. Active omeprazole (PRILOSEC) 40 mg Oral Capsule, Delayed Release(E.C.) Take 40 mg by mouth daily. Active brinzolamide/br imonidine tart (SIMBRINZA OPHT) Apply to eye. Active immun glob G,IgG,/pro/IgA 0-50 (PRIVIGEN IV) Inject into the vein. Active timolol (TIMOPTIC) 0.5 % Opht Drops 2 Active sodium chloride (FERCHO 128) 2 % Opht Drops Apply 1 Drop to eye. 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 04/10/2014 Herpes zoster Gilbert's syndrome Chronic back pain Surgical History Surgery Date Site/Laterality Comments TONSILLECTOMY CYST REMOVAL neck MANDIBLE FRACTURE SURGERY VERTEBRAL CORPECTOMY NECK SURGERY vertebral fusion BACK SURGERY spinal cord stimulator UPPER GASTROINTESTINAL ENDOSCOPY 06/04/08 small hiatal hernia Medical History Medical History Date Comments Asthma Unspecified sleep apnea no CPAP Hyperlipidemia Heartburn Arthritis Depression 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, cancer of tonsils Chronic kidney disease hx stones passed one 4/18 11 Back ache Leukemia, chronic lymphoid, in remission (HCC) Anxiety Renal insufficiency 05/22/2014 Hypothyroid 05/22/2014 Herpes zoster Chronic back pain Family History Medical History Relation Name Comments Heart Disease Brother Cancer Father Prostate Heart Disease Father COPD Mother Heart Attack Mother Relation Name Status Comments Brother Alive Father Alive Mother Social History Tobacco Use Types Packs/Day Years Used Date Smoking Tobacco: Never Smokeless Tobacco: Never Alcohol Use Standard Drinks/Week Comments Yes 0 (1 standard drink = 0.6 oz pur e alcohol) occas Sex and Gender Information Value Date Recorded Sex Assigned at Not on file Legal Sex Male 4:27 PM EDT Gender Identity Not on file Sexual Orientation Not on file Obstetrics History Last Filed Vital Signs Vital Sign Reading Time Taken Comments Blood Pressure 112/80 02/04/2022 11:19 AM EDT Pulse 76 02/04/2022 11:19 AM EDT Temperature 36.7 C (98 F) 02/21/2015 10:50 AM EDT Respiratory Rate 16 02/21/2015 10:50 AM EDT Oxygen Saturation 97% 01/31/2014 3:40 PM EDT Inhaled Oxygen Concentration - - Weight 98 kg (216 lb) 02/04/2022 11:19 AM EDT Height 185.4 cm (6' 1 ) 02/04/2022 11:19 AM EDT Body Mass Index 28.5 02/04/2022 11:19 AM EDT Plan of Treatment Health Maintenance Due Date Last Done Comments Wellness Exam Medicare 1958 Hepatitis C Screening 1975 DTaP/TDaP/Td (1 - Tdap) 1976 Zoster (1 of 2) 1976 Cologuard 2002 FIT 2002 Sigmoidoscopy 2002 Virtual Colonography 2002 Colon Cancer Screening 06/04/2018 Colonoscopy 06/04/2018 06/04/2008 Pneumococcal Vaccine 50+ (3 of 3 - PCV20 or PCV21) 08/13/2019 05/29/2016, 08/13/2014 COVID-19 Vaccine ( season) 2024 07/21/2023, 07/15/2022, 12/02/2021, Additional history exists Influenza Vaccine (#1) 2025 3, 07/11/2022, 07/15/2021, Additional history exists RSV or 60+ Completed 07/21/2023 Hepatitis B Vaccine Aged Out No longe r eligible based on patient's age to complete this topic Meningococcal B Vaccine Aged Out No l onger eligible based on patient's age to complete this topic Medical Devices Explanted Type Area Dog Walker Device Identifier Shelf Expiration Date Model / Serial / Lot Kit Lead Contact 8 50mm Linear - [id number] Implanted:Qty: 1 on 11/10/2010 at [facility] Explanted:Qty: 1 on 01/31/2014 by Mary Ellen Soto MD at [facility] Lumbar [employer]:NEUROMODULAT ION SC-2218-5 0 / / [id number] Kit Generator Pulse Implantable - [id number] Implanted:Qty: 1 on 11/10/2010 at [facility] Explanted:Qty: 1 on 01/31/2014 at [facility] Left: Back [employer]:NEUROMODULAT ION SC-1110-0 2 / / [id number] Kit Lead Contact [address] - [id number] Implanted:Qty: 1 on 02/02/2011 at [facility] Explanted:Qty: 1 on 01/31/2014 by Mary Ellen Soto MD at [facility] Cervical [employer]:NEUROMODULAT ION 09/10/2011 SC-2218-7 0 / / [id number] [employer] Click Precision - [id number] Implanted:Qty: 1 on 02/02/2011 at [facility] Explanted:Qty: 1 on 01/31/2014 by Mary Ellen Soto MD at [facility] Thoracic [employer]:NEUROMODULAT ION [id number] / / Insurance [employer] [place] [address] Care Teams Die Casting Machine Maintainer Relationship Specialty Start Date End Date Martin Leal MD PCP - General 10/22/10 Jb Harris MD Consulting Physician Internal Medicine-Medical Oncology 02/18/15
--- OUTSIDE RECORDS SUMMARY | 2025-05-18 10:18 | XMS_ITS | Clinical Summary ---
Author Organization [facility] Address [address], [address] [place] [address] Care Team Providers Care Women'S Soccer Coach Name Role Phone Martin Leal MD Primary Care Provider [phone] Allergies Active Allergy Reactions Criticality Noted Date Comments Iodides 06/10/2012 Morphine Itching 06/10/2012 Phenelzine Sulfate 06/10/2012 Oxycodone Hcl Itching 06/10/2012 Tramadol Hcl 06/10/2012 Medications albuterol (PROVENTIL;VENTOLIN ) 90 MCG/ACT inhaler Inhale 2 puffs into the lungs every 6 hours as needed. Active fluticasone-salmete rol (ADVAIR) 100-50 MCG/DOSE diskus inhaler Inhale 1 puff into the lungs every 12 hours. Active montelukast (SINGULAIR) 10 MG tablet Take 10 mg by mouth nightly. Active simvastatin (ZOCOR) 40 MG tablet Take 40 mg by mouth nightly. Active lansoprazole (PREVACID SOLUTAB) 15 MG disintegrating tablet Take 15 mg by mouth daily. Active ARIPiprazole (ABILIFY) 5 MG tablet Take 5 mg by mouth daily. Active DULoxetine (CYMBALTA) 60 MG capsule Take 60 mg by mouth daily. Active buPROPion (WELLBUTRIN SR) 150 MG SR tablet Take 150 mg by mouth 2 times daily. Active diazepam (VALIUM) 5 MG tablet Take 5 mg by mouth every 6 hours as needed. Active amphetamine-dextroa mphetamine (ADDERALL) 30 MG tablet Take 30 mg by mouth daily. Active Active Problems No known active problems Social History Tobacco Use Types Packs/Day Years Used Date Smoking Tobacco: Never Smokeless Tobacco: Never Alcohol Use Standard Drinks/Week Comments Yes 0.8 (1 standard drink = 0.6 oz p ure alcohol) Sex and Gender Information Value Date Recorded Sex Assigned at Not on file Legal Sex Male 6:16 PM EST Gender Identity Not on file Sexual Orientation Not on file Last Filed Vital Signs Vital Sign Reading Time Taken Comments Blood Pressure 125/86 11/08/2017 10:25 AM EST Pulse 124 11/08/2017 10:25 AM EST Temperature 36.1 C (97 F) 06/17/2012 9:11 AM EDT Respiratory Rate 16 06/17/2012 9:11 AM EDT Oxygen Saturation 97% 06/17/2012 9:11 AM EDT Inhaled Oxygen Concentration - - Weight 108.9 kg (240 lb) 11/08/2017 10:25 AM EST Height 185.4 cm (6' 1 ) 11/08/2017 10:25 AM EST Body Mass Index 31.66 11/08/2017 10:25 AM EST Plan of Treatment Not on file Insurance [employer] MEDICARE Advance Directives Documents on File Type Date Recorded Patient Nuclear Cardiology Technologist Expl anation ACP-Advance Directive 05/18/2013 1:15 PM ACP-Advance Directive 05/18/2013 1:15 PM ACP-Advance Directive 05/18/2013 1:15 PM Care Teams Women'S Soccer Coach Relationship Specialty Start Date End Date Martin Leal MD [address] [facility] [place] [address] PCP - General 06/06/12
--- OUTSIDE RECORDS SUMMARY | 2025-05-18 10:18 | XMS_ITS | Encounter Summary ---
Author Organization [facility] Address [address] [place] [address] Care Team Providers Care Supervisor Fusing Room Name Role Phone Martin Leal MD Primary Care Provider [phone] Steven Lee MD, Jb [facility] Encounter Details Date Type Department Care Team (Late st Contact Info) Description 04/16/2014 Orders Only [facility] [address] [facility] [place] [phone] Jb Harris MD Social History Tobacco Use Types Packs/Day Years Used Date Smoking Tobacco: Never Alcohol Use Standard Drinks/Week Comments Yes 0 (1 standard drink = 0.6 oz pur e alcohol) occas Sex and Gender Information Value Date Recorded Sex Assigned at Not on file Legal Sex Male 4:27 PM EDT Gender Identity Not on file Sexual Orientation Not on file documented as of this encounter Plan of Treatment Not on file documented as of this encounter Visit Diagnoses Not on filedocumented in this encounter Care Teams Supervisor Fusing Room Relationship Specialty Start Date End Date Martin Leal MD PCP - General 10/22/10 Jb Harris MD Consulting Physician Internal Medicine-Medical Oncology 02/18/15 documented as of this encounter
--- OUTSIDE RECORDS SUMMARY | 2025-05-18 10:19 | XMS_ITS | Encounter Summary ---
Author Organization [facility] Address [address] [place] [address] Care Team Providers Care Machine Brush Maker Name Role Phone Martin Leal MD Primary Care Provider Steven Lee MD, Jb [facility] Encounter Details Date Type Department Care Team (Late st Contact Info) Description 05/21/2014 Orders Only [facility] Med Oncology [address] [place] [address] Sona Ramirez RN Social History Tobacco Use Types Packs/Day Years [...] on filedocumented in this encounter Care Teams Machine Brush Maker Relationship Specialty Start Date End Date Martin Leal MD PCP - General 10/22/10 Jb Harris MD Consulting Physician Internal Medicine-Medical Oncology 02/18/15 documented as of this encounter
--- OUTSIDE RECORDS SUMMARY | 2025-05-18 10:19 | XMS_ITS | Clinical Summary ---
Author Organization [facility] Address [address] [place] [address] Care Team Providers Care Painter Touch Up Name Role Phone Martin Leal MD Primary Care Provider [phone] Social History Tobacco Use Types Packs/Day Years Used Date Smoking Tobacco: Never Assessed Sex and Gender Information Value Date Recorded Sex Assigned at Not on file Legal Sex Male 8:24 PM EDT Gender Identity Not on file Sexual Orientation Not on file Plan of Treatment Health Maintenance Due Date Last Done Comments Hepatitis C Screening 1955 DTap,Tdap,and Td (1 - Tdap) 1968 Colonoscopy 2002 PSA YEARLY 2007 Shingrix (#1) 2007 Pneumococcal 50+ (3 of 3 - PCV20 or PCV21) 05/29/2021 05/29/2016, 08/13/2014 Influenza Vaccine (#1) 2025 RSV Vaccine (60+ or ) (1 - 1-dose 75+ series) 2032 Pneumococcal 0-49 Discontinued 05/29/2016, 08/13/2014 HPV Aged Out No longer eligi ble based on patient's age to complete this topic Meningococcal conjugate valent 4 (MCV4) Aged Out No longer eligible based on patient's age to complete this topic RSV Immunization (<20 months) Aged Out No longer eligible based on patient's age to complete this topic Insurance [employer] MEDICARE MEDICAID [place] on file Care Teams Painter Touch Up Relationship Specialty Start Date End Date Martin Leal MD PCP - General Family Medicine 08/11/18
--- OUTSIDE RECORDS SUMMARY | 2025-05-18 10:19 | XMS_ITS | Referral Summary ---
Author Organization [facility] Address [address] [place] [address] Care Team Providers Care Learning Coordinator Name Role Phone Martin Leal MD Primary Care Provider [phone] Social History Tobacco Use Types Packs/Day Years Used Date Smoking Tobacco: Never Assessed Sex and Gender Information Value Date Recorded Sex Assigned at Not on file Legal Sex Male 8:24 PM EDT Gender Identity Not on file Sexual Orientation Not on file Plan of Treatment Not on file Insurance [address] [place] [address] A[employer]NA MEDICARE MEDICAID [place] on file Care Teams Learning Coordinator Relationship Specialty Start Date End Date Martin Leal MD PCP - General Family Medicine 08/11/18
== END 2025-05-17 23:59 | disposition home or self-care (01) ==
LOC: LAB.DROPOF 05-18 10:14
PROVIDERS: PCP Family Medicine; Visit Provider Family Medicine
DX: E03.9 Hypothyroidism, unspecified (principal); C61 Malignant neoplasm of prostate; F41.9 Anxiety disorder, unspecified; C91.10 Chronic lymphocytic leukemia of B-cell type not having achieved remission; Z12.5 Encounter for screening for malignant neoplasm of prostate
CPT/HCPCS: 80053; 80061; 85025; G0103